=== PATIENT | male | born 1970 | race Hispanic/Latino ===

== ENCOUNTER 2018-09-26 20:19 | Emergency (ER) | payer OTHER, MEDICARE ==
[2018-09-26 20:43] VITALS: RESP 18; TEMP 98.7; BMI 26.6
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
[2018-09-26 21:55] VITALS: BP 146/82; PULSE 73; O2SAT 100
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
== END 2018-09-26 21:53 | disposition home or self-care (01) ==
LOC: ED 20:19
DX: S13.4XXA Sprain of ligaments of cervical spine, initial encounter (principal); M25.521 Pain in right elbow; V13.4XXA Pedal cycle driver injured in collision with car, pick-up truck or van in traffic accident, initial encounter; Y93.55 Activity, bike riding; Y92.410 Unspecified street and highway as the place of occurrence of the external cause; E11.9 Type 2 diabetes mellitus without complications